=== PATIENT | male | born 1980 | race African-American/Black ===

== ENCOUNTER 2017-12-26 06:56 | Emergency (ER) | payer SELFPAY ==
--- NOTE | 2017-12-26 07:09 | PDOC ---
History of Present Illness - General Chief Complaint: Back Pain Stated Complaint: BACK PAIN Time Seen by Provider: 12/26/17 07:06 - History of Present Illness Initial Comments: 12/26/17 07:18 36 yo M with h/o PCP use who presents with back pain. Patient reports experiencing upper and lower spinal back pain while walking outside yesterday. Mother at bedside reports seeing patient on hands and knees on bathroom floor d/ t pain. Also states that he was vomitting earlier in the day. Non biliary. non bloody. He reports worsening, sharp shooting upper to lower spinal back pain, aggravated with movement. Denies heavy lifting, pulling,straining,neck stiffness , or back trauma. No associated numbness/tingling in ext., weakness, perianal parasthesia, urinary/stool retention, urinary/stool incontinence. Also endorses nausea without vomiting. Pain non pleuritic and not aggravated with deep inhalation. Denies flank pain, hematuria, F/C. Denies CP, SOB, cough, palpitations, abdominal pain, diarrhea, consitpation. States that he is not allowed to take OTC pain medication d/t recent drug related probation status. Denies IV drug use. Denies h/o MS. Past History - Past Medical History Allergies/Adverse Reactions: Allergies Allergy/AdvReac Type Severity Reaction Status Date / Time No Known Allergies Allergy Verified 12/26/17 07:12 Home Medications: Ambulatory Orders Famotidine [Pepcid -] 40 mg PO BID #60 tablet 12/26/17 Review of Systems - Review of Systems Comments:: 12/26/17 07:07 GENERAL/CONSTITUTIONAL: No fever or chills. No weakness. HEAD, EYES, EARS, NOSE AND THROAT: No change in vision. No ear pain or discharge. No sore throat.- CARDIOVASCULAR: No chest pain or shortness of breath RESPIRATORY: No cough, wheezing, or hemoptysis. GASTROINTESTINAL: No nausea, vomiting, diarrhea or constipation. GENITOURINARY: No dysuria, frequency, or change in urination. MUSCULOSKELETAL: + Back and neck pain/stiffness. Joint or muscle swelling or pain. SKIN: No rash NEUROLOGIC: No headache, vertigo, loss of consciousness, or change in strength/ sensation. ENDOCRINE: No increased thirst. No abnormal weight change HEMATOLOGIC/LYMPHATIC: No anemia, easy bleeding, or history of blood clots. ALLERGIC/IMMUNOLOGIC: No hives or skin allergy. *Physical Exam - Physical Exam Comments: 12/26/17 07:07 GENERAL: Awake, alert, and fully oriented, in no acute distress HEAD: No signs of trauma, normocephalic, atraumatic EYES: PERRLA, EOMI, sclera anicteric, conjunctiva clear ENT: Hearing grossly normal, nares patent, oropharynx clear without exudates. Moist mucosa NECK: Normal ROM, no JVD, or masses LUNGS: No distress, speaks full sentences, clear to auscultation bilaterally HEART: Regular rate and rhythm, normal S1 and S2, no murmurs, rubs or gallops, peripheral pulses normal and equal bilaterally. ABDOMEN: Soft, nontender, normoactive bowel sounds. No guarding, no rebound. No masses. absent flank pain. EXTREMITIES : Normal inspection, Normal range of motion, no edema. No clubbing or cyanosis. NEUROLOGICAL: Spinal and paraspinal ttp. No bony portrusion. Cranial nerves II through XII grossly intact. Normal speech, normal gait, no focal sensorimotor deficits. SKIN: Warm, Dry, normal turgor, no rashes or lesions noted ED Treatment Course - LABORATORY CBC & Chemistry Diagram: 12/26/17 08:20 12/26/17 08:20 Medical Decision Making - Medical Decision Making 12/26/17 07:36 36 yo M with h/o PCP use who presents with acute, worsening, sharp shooting upper to lower spinal back pain, with onset 24 hours [employer] following episode of non biliary, non bloody emesis. Back pain worse with movement. Denies heavy lifting, pulling,straining, neck stiffness, or back trauma. No associated numbness/tingling in ext.,weakness, perianal parasthesia, urinary/stool retention, urinary/stool incontinence. Denies flank pain, hematuria, F/C, CP, SOB, cough, palpitations, abdominal pain, diarrhea, consitpation. Denies IV drug use. Denies h/o MS. Physical exam noteable for cervical to lumbar spinal and paraspinal ttp. No focal neuro deficits, or nuchal rigidity. Hemodynamically stable. Will obtain imaging to r/o Guera barromre. Although unlikely d/t absent neuro deficits, and sensory level distrubance, will consider early transverse myelitis vs. MS. Low suspicion of pyelonephritis, epidural abscess, trauma. ED Course: CBC, CMP, Cardiac Pr CXR, EKG Flexeril, Tylenol CT Chest EKG: Sinus bradycarida with absent MD prolongation. Absent STD, or OSWALDO. Normal interval duration and axis. 12/26/17 08:12 12/26/17 09:04 CBC, CMP: Unremarkable Trop: Neg CXR: No evidence of pneumomediastinum on preliminary read. No evidence of acute pathology. 12/26/17 11:14 CTA Chest: No evidence of aortic dissection or esophageal rupture. No acute pathology. Patient stable for d/c with return precautions. Advised pt. to take Pepcid and f /i with PMD. *DC/Admit/Observation/Transfer Diagnosis at time of Disposition: Back pain Qualifiers: Back pain location: back pain in other location Chronicity: acute Qualified Code(s): M54.9 - Dorsalgia, unspecified - Discharge Dispostion Admit: No - Prescriptions Prescriptions: Famotidine [Pepcid -] 40 mg PO BID #60 tablet - Referrals - Patient Instructions Printed Discharge Instructions: DI for Low Back Pain Additional Instructions: Please return to the emergency department with any new or worsening symptoms or concerns. Please follow up with your primary care physician within one week. Take pepcid 2 times a day. - Post Discharge Activity - Attestations Physician Attestion: 12/26/17 07:09 I attest to the information provided in this note.
[2017-12-26 07:13] VITALS: TEMP 97.9; BMI 18.6
[2017-12-26] MEDS ORDERED: CYCLOBENZAPRINE HCL 5 MG TABLET PO ONE (07:47)
[2017-12-26] MEDS ORDERED: ACETAMINOPHEN 500 MG TABLET (FP) PO ONE (07:47)
[2017-12-26] MEDS ORDERED: ACETAMINOPHEN 325 MG TABLET (FP) ONE (07:59)
[2017-12-26] MEDS ORDERED: CYCLOBENZAPRINE HCL 10 MG TABLET (FP) ONE (07:59)
[2017-12-26] MEDS ORDERED: SODIUM CHLORIDE 1,000 ML IV STA (08:13)
--- NOTE | 2017-12-26 08:33 | PDOC ---
Attending Attestation - Resident Resident Name: London Stearnsson - ED Attending Attestation I have performed the following: I have examined & evaluated the patient, The case was reviewed & discussed with the resident, I agree w/resident's findings & plan, Exceptions are as noted - HPI HPI: 12/26/17 08:29 Healthy 36-year-old male with no significant past medical history other than PCP use presents with severe back pain since yesterday. Patient was in his usual state of normal health, was returning from his friend's house when he developed nausea and an episode of nonbloody nonbilious vomiting, which was followed by progressive and severe back pain that has persisted since then. Pain was a 10 out of 10, is somewhat positional and improved by lying on his side or his stomach, and associated with some chills and diaphoresis this morning. There were 2 further episodes of nonbloody nonbilious emesis yesterday , unable to tolerate by mouth. No chest pain, no odynophagia, no bloody bowel movement. - Physicial Exam PE: 12/26/17 08:31 Vital signs are normal, afebrile Alert in stretcher, lying on his side but slightly uncomfortable Questionable decreased breath sounds at the right base, cardiopulmonary exam is otherwise normal No palpable crepitus Abdomen has some epigastric and right upper quadrant tenderness without guarding or rebound - Medical Decision Making 12/26/17 08:31 Patient seen and evaluated with the resident. I agree with the overall evaluation, assessment, and management with the following summary of visit: Healthy 36-year-old male with acute onset of back pain following episode of vomiting. Presentation could be most concerning for ruptured esophagus or Akiko-Solorzano tear, less likely bowel perforation, seems less consistent with vascular process given the normal vital signs. Less likely musculoskeletal. labs pain control EKG is nonischemic Stat chest x-ray followed by CT chest Not septic at this time, hemodynamically stable Reassess 12/26/17 11:27 workup completely negative. no leukocytosis, trop negative, cxr and ct chest without acute pathology (except subpleural bullae). will reassess. ? dyspepsia post vomiting/gastritis, remains HD stable and neuro intact. Heart Score/ECG Review #1 ECG reviewed & interpreted by me at: 07:56 General ECG Interpretation: Sinus Rhythm, Normal Rate (53), Normal Intervals ( qtc 373), No acute ischemic changes
[2017-12-26 08:48] LABS: ALBUMIN 3.7 g/dl (3.4-5.0); ALK PHOS 89 U/L (45-117); ANION GAP 6 (8-16); BLOOD UREA NITROGEN 12 mg/dL (7-18); CALCIUM 8.6 mg/dL (8.5-10.1); CHLORIDE 105 mmol/L (98-107); CO2 29 mmol/L (21-32); GLUCOSE,RANDOM 79 mg/dL (74-106); SGOT/AST 14 U/L (15-37); SGPT/ALT 20 U/L (12-78); SODIUM 140 mmol/L (136-145); TOT PROT 6.7 g/dl (6.4-8.2)
[2017-12-26 08:50] LABS: BASO % 0.6 % (0-2.0); HEMATOCRIT 44.1 % (35.4-49); HEMOGLOBIN 14.2 GM/dL (11.7-16.9); LYMPH % 13.9 % (8-40); MCH 29.6 pg (25.7-33.7); MCHC 32.2 g/dl (32.0-35.9); MEAN PLT VOLUME 8.3 fl (7.5-11.1); MONO % 8.9 % (3.8-10.2); NEUT % 74.6 % (42.8-82.8); PLATELET COUNT 218 K/MM3 (134-434); RDW 14.6 % (11.9-15.9); WHITE BLOOD COUNT 7.3 K/mm3 (4.0-10.0)
[2017-12-26 12:21] VITALS: BP 118/65; PULSE 80
--- NOTE | 2017-12-27 10:34 | EKG ---
Test Reason : Blood Pressure : / mmHG Vent. Rate : 053 BPM Atrial Rate : 053 BPM P-R Int : 184 ms QRS Dur : 090 ms QT Int : 398 ms P-R-T Axes : 063 046 053 degrees QTc Int : 373 ms SINUS BRADYCARDIA WITH SINUS ARRHYTHMIA ANTERIOR INFARCT , AGE UNDETERMINED ABNORMAL ECG NO PREVIOUS ECGS AVAILABLE Confirmed by JENNA DUVALL MD ([id number]) on 12/27/2017 10:34:27 AM Referred By: Confirmed By:JENNA DUVALL MD
== END 2017-12-26 12:22 | disposition home or self-care (01) ==
LOC: JER 06:56
PROC: 3E0337Z Introduction of Electrolytic and Water Balance Substance into Peripheral Vein, Percutaneous Approach (ICD-10-PCS; principal; 2017-12-26)
DX: M54.9 Dorsalgia, unspecified (principal)
CPT/HCPCS: 36415; 71045-TC-FY; 71260-TC; 80053; 82550; 82553; 84484; 85025; 93005; 93010; 99284-25